=== PATIENT | male | born 1955 | race Caucasian/White ===

== ENCOUNTER 2016-09-05 02:45 | Inpatient (IN) | payer OTHER ==
[~2016-09-05] VITALS: Ht 167.6 cm; Wt 93.0 kg
[2016-09-05] MEDS ORDERED: IBUPROFEN400 M1 PO (08:01)
[2016-09-05] MEDS ORDERED: COLACE100 M1 PO (10:10)
[2016-09-05] MEDS ORDERED: PRILOSEC OTC20 M1 PO (10:10)
[2016-09-05] MEDS ORDERED: MIRALAX17 G1 PO (10:10)
[2016-09-05] MEDS ORDERED: DILAUDID2 M1 PO (10:10)
[2016-09-05] MEDS ORDERED: ASPIRIN EC325 M2 PO (10:10)
--- NOTE | 2016-09-05 10:25 | Patient Discharge Instructions ---
Discharge Instructions General Discharge Information You were seen/treated for: Right hip pain secondary to Right hip arthritis You had these procedures: Right total hip replacement Watch for these problems: Increasing pain, redness, warmth, swelling. Drainage of any type from incision. Inability to bear weight on right leg. Fever greater than 101.5. Do not soak the wound: Yes Daily wet to dry dressings: No No bath, but you may shower: Yes Other wound care: Keep wound clean and dry Special Instructions: Diet : Regular diet Activity; weight bear as tolerated Incision; keep incision clean dry and intact. You may shower however bathing or soaking. Do not apply any ointments to the postop incision site. DVT prophylaxis; use aspirin 325 mg by mouth twice a day for 3 weeks as directed. Continue the bowel regimen (Colace, MiraLAX] as directed to avoid constipation secondary to narcotics. Follow-up with Dr. Wilson in 6 weeks and notify physician prior to follow up visit if you develop redness, excessive drainage from incision site, inability to bear weight, or increase in pain in the postop site which is uncontrolled by pain medication, or fever greater than 101.5. Diet Continue normal diet: Yes Recommended Diet: Regular Activity Full Activity/No Limits: No Activity Self Limited: Yes Pounds, do NOT lift more than: 10 Activity Limited to: Weight bear as tolerated Acute Coronary Syndrome Inclusion Criteria At [place] or during hospital stay patient has or had the following: ACS DIAGNOSIS No Discharge Core Measures Meds if any: Prescribed or Continued at Discharge Meds if any: NOT Prescribed or Continued at Discharge Congestive Heart Failure Inclusion Criteria At [place] or during hospital stay patient has or had the following: CHF DIAGNOSIS No Discharge Core Measures Meds if any: Prescribed or Continued at Discharge Meds if any: NOT Prescribed or Continued at Discharge Cerebrovascular accident Inclusion Criteria At DC or during hospital stay patient has or had the following: CVA/TIA Diagnosis No Discharge Core Measures Meds if any: Prescribed or Continued at Discharge Meds if any: NOT Prescribed or Continued at Discharge Venous thromboembolism Inclusion Criteria VTE Diagnosis No VTE Type NONE VTE Confirmed by (Test) NONE Discharge Core Measures - Per Current guidelines, there needs to be overlap - treatment for the first 5 days of Warfarin therapy. - If discharged on Warfarin prior to 5 days of - overlap therapy, the patient will need to be - assessed for post discharge needs including - *Post discharge parental anticoagulation - *Warfarin and/or parental anticoagulation education - *Follow up date to check INR post discharge At least 5 days overlap therapy as Inpatient No Meds if any: Prescribed or Continued at Discharge Note: Overlap Therapy is Warfarin and Anticoagulant Meds if any: NOT Prescribed or Continued at Discharge
--- NOTE | 2016-09-05 10:33 | Surgical Discharge Summary ---
Visit Information Visit Dates Admission Date: 09/05/16 Discharge Date: 09/08/16 History of Present Illness Chief Complaint: Right hip pain secondary to osteoarthritis Surgical History Pertinent Surgical History: non-contributory Review of Systems: See H&P Hospital Course Course Attending Physician: JEAN MARIE VENTURA MD Primary Care Physician: UNKNOWN Hospital Course: Patient was admitted after undergoing the scheduled procedure right total hip replacement. He tolerated the procedure well and was transferred to a general surgical floor. His diet was advanced as tolerated. His pain is adequately controlled well with oral pain medication. He remained vitally stable, and vital signs were within normal limits. No acute complications postoperatively. Able to void spontaneously. During hospital course he was evaluated by physical therapist and was deemed appropriate for discharge to short term rehab. Allergies: Coded Allergies: No Known Allergies (09/02/16) Disposition Summary Disposition Principal Diagnosis: Right hip primary unilateral osteoarthritis Additional Diagnosis: none Discharge Disposition: home health services Discharge Instructions General Discharge Information Code Status: Full Code Patient's Diet: Regular, advance as tolerated Patient's Activity: weight bearing as tolerated. Limit any heavy lifting (less than 10lbs.) Follow-Up Instructions/Appts: Follow-up with Dr. VENTURA in 6 weeks for post OP FOLLW UP VISIT. Medications at Discharge Discharge Medications: Stop taking the following medications: Ibuprofen (Ibuprofen) 400 MG TABLET ORAL EVERY 6 HOURS NEEDED as needed for PAIN Start taking the following new medications: Morphine Sulfate (Ms Contin) 100 MG TABLET.ER 1 Tablet ORAL TWICE DAILY Qty = 30 No Refills Aspirin (Ecotrin*) 325 MG TABLET.DR 1 Tablet ORAL TWICE DAILY Qty = 60 No Refills Hydromorphone HCl (Dilaudid) 2 MG TABLET 1-2 Tablet ORAL EVERY 4-6 HOURS as needed for POST OP PAIN Qty = 36 No Refills Omeprazole Magnesium (Prilosec Otc) 20 MG TABLET.DR 1 Tablet ORAL DAILY Qty = 30 No Refills Docusate Sodium (Colace) 100 MG CAPSULE 1 Capsule ORAL TWICE DAILY Qty = 14 No Refills Instructions: DISCONTINUE IF YOU DEVELOP DIARRHEA Polyethylene Glycol 3350 (Miralax) 17 GRAM POWD.PACK 1 Packet ORAL DAILY Days = 7 No Refills Instructions: dissolve in water AND DISCONTIUE IFYOU DEVELOP DIARRHEA
--- NOTE | 2016-09-05 10:39 | Admission Core Measures ---
Admission Meds I reviewed the following Meds: Current Medications Sig/Loco Start time Last Medication Dose Stop Time Status Admin Acetaminophen 975 MG ONCE 09/05 NR (Tylenol) 09/05 2358 Cefazolin Sodium 2,000 MG ONCE 09/05 NR (Kefzol-Ancef Inj) 09/05 2358 Oxycodone HCl 10 MG ONCE 09/05 0000 NR (Roxicodone) 09/05 2358 Acute Coronary Syndrome Inclusion Criteria ACS Diagnosis No Inpatient Core Measures LDL Reminder: If No, please order W/I first 24hr of stay Congestive Heart Failure Inclusion Criteria CHF Diagnosis No Cerebrovascular accident Inclusion Criteria CVA/TIA Diagnosis No Inpatient Core Measures Bedside Swallow Eval Reminder: If BSE failed, place ST order Antithrombotic Reminder: Order Antithrombotic Medication by end of day 2 Antithrombotic Reminder: Document Reason Antithrombotic Not ordered by end of day 2 AFIB/Flutter Reminder: If Present, add to problem list AFIB/Flutter Reminder: Order Anticoag Medication for pts with AFIB/Flutter Atherosclerosis Reminder: If Present, add to problem list LDL Reminder: If No, please order W/I first 24hr of stay PT Order Reminder: If No, please order Venous thromboembolism Inpatient Core Measures VTE Risk Factors: Age > 40, Surgery No [facility] VTE prophylaxis d/t No contraindications No VTE Pharm Prophylaxis d/t No contraindications Inclusion Criteria - Per Current guidelines, there needs to be overlap - treatment for the first 5 days of Warfarin therapy. - Parenteral Anticoagulation (IV or SC) needs to be - given along with Warfarin therapy. VTE Diagnosis No VTE Type NONE VTE Confirmed by (Test) NONE Problem List As ranked by this Provider includes Assessment & Plan 1. Unilateral primary osteoarthritis, right hip HOME MEDS Home Med List Aspirin (Ecotrin*) 325 MG TABLET.DR 1 TAB PO BID ANTICOAGULATION Docusate Sodium (Colace) 100 MG CAPSULE 1 CAP PO BID CONSTIPATION Hydromorphone HCl (Dilaudid) 2 MG TABLET 1-2 TAB PO Q4-6 PRN POST OP PAIN Ibuprofen 400 MG TABLET 1 TAB PO EVERY 6HRS- NEEDED PRN PAIN (Reported) Omeprazole Magnesium (Prilosec Otc) 20 MG TABLET.DR 1 TAB PO DAILY GI PROTECTION Polyethylene Glycol 3350 (Miralax) 17 GRAM POWD.PACK 1 PAC PO DAILY CONSTIPATION
--- NOTE | 2016-09-05 13:06 | RADIOLOGY REPORT ---
EXAMINATION: XR HIP, RIGHT CLINICAL INFORMATION: Status post right total hip replacement. COMPARISON: None TECHNIQUE: Two views of the right hip. FINDINGS: The femoral and acetabular components of the right hip prosthesis appear well seated. No evidence of fracture or hardware failure. Typical postoperative soft tissue changes are noted. IMPRESSION: Status post right total hip replacement. No evidence of hardware failure or fracture.
--- NOTE | 2016-09-05 13:16 | PN- Orthopedic ---
Subjective Subjective: The patient was seen this afternoon postoperatively. He reports that he feels great and that his pain is under adequate control at the current time. He had no other complaints and is eager to work with physical therapy. Objective Vital Signs and I&Os Vital signs: Blood pressure 117/63, pulse 60, temperature 97.8, O2 saturation 98 % on room air I's and O's: 12 5 ML's in of lactated Ringer's/patient is due to void/EBL less than 150 Physical Exam: Gen.: Alert and in no obvious distress Skin: Warm and dry Cardiac: S1-S2 regular Pulmonary: Bilateral breath sounds are equal and slightly decreased at bases Extremities: Bilateral lower extremities are warm without calf tenderness or significant edema. Gross motor and sensory are intact. Right hip surgical dressing is clean, dry, and intact. Thigh compartments are soft without evidence of hematoma. Assessment/Plan Assessment/Plan Assessment: 61-year-old male status post right total hip arthroplasty. Postoperative the patient is progressing as expected and his pain is under adequate control. Plan: Out of bed with physical therapy patient is weightbearing as tolerated Continue current pain regiment Restart home medications GI and DVT prophylaxis, first dose of aspirin will be tonight Incentive spirometry Advance diet as tolerated Monitor for postoperative void begin Bowel regiment Core Measures/Miscellaneous Venous Thromboembolism VTE Risk Factors: Age > 40, Surgery VTE Contraindications: No Contraindications VTE Diagnosis: No VTE Type: NONE VTE Confirmed by (Test): NONE Beta Delores Is Beta Delores a Home Med? No Antibiotics Is Patient on Antibiotics? Yes If Yes: prophylaxis
[2016-09-05 13:50] VITALS: BP 112/70
--- NOTE | 2016-09-05 14:49 | Operative Report ---
Operative/Inv Procedure Report Surgery Date: 09/05/16 Name of Procedure: Right total hip replacement Pre-Operative Diagnosis: Primary right hip DJD Post-Operative Diagnosis: Same Estimated Blood Loss: 350 Surgeon/Accreditation Manager: LORENZO PULLIAM,JEAN MARIE Mclaughlin Anesthesia: block Operative/Procedure Note Note: Description of Procedure: The patient was taken to the operating room and positively identified. After induction of spinal anesthesia and administration of appropriate pre-operative antibiotics, the patient was positioned supine on the operating room table and all bony prominences were well padded. After performing a surgical timeout, the right lower extremity was prepped and draped in the usual sterile fashion. A direct anterior approach was made to the right hip. The incision was carried sharply through superficial soft tissues to the level of the fascia. Meticulous hemostasis was maintained with Bovie electocautery. The fascia over the tensor fascia jaime muscle was opened sharply and the interval between the TFL and the sartorius was entered bluntly taking care to stay lateral to the lateral femoral cutaneous nerve. Retractors were placed around the femoral neck and the pericapsular fat was identified. The ascending branches of the lateral femoral circumflex vessels were identified and carefully coagulated. The pericapsular fat and anterior capsule were then resected. A napkin ring osteotomy was performed and the femoral head was removed without difficulty. Attention was then turned to the acetabulum. After appropriate placement of retractors, the acetabulum was exposed. Soft tissue was cleaned from the acetabular margin and notch. Overhanging osteophytes were removed and the teardrop was exposed. The acetabulum was then sequentially reamed to accept a 68 mm Maria D Tritanium hemispherical shell. This was impacted into place in the appropriate position and fitted with a 36 mm Trident X3 zero degree polyethylene insert. Attention was then turned to the femur. After performing the appropriate ligament releases, the proximal femur was exposed. It was then sequentially broached to accept a size 6 [place] stem. This was trialed for leg length and stability. The trial component was removed and the final component was impacted into place. The trunnion was carefully cleaned and fit with a 36 mm, + 0 Biolox delta ceramic femoral head. The hip was reduced and put through a full range of motion and found to be stable. The articular space was then irrigated with sterile saline. The periarticular soft tissues were infilitrated with Marcaine. The fascial layer was closed with interrupted #1 vicryl suture and the skin was re-approximated with interrupted 2 -0 vicryl. The skin was closed with a running 3-0 V-Lock suture. Steri-strips and a sterile dressing were applied. The patient was awakened and taken to the recovery room in satisfactory condition.
[2016-09-05 22:51] VITALS: BP 118/72
[2016-09-06 03:58] VITALS: BP 138/64
[2016-09-06 07:30] VITALS: BP 132/68
--- NOTE | 2016-09-06 07:52 | PN- Orthopedic ---
See Addendum Subjective Subjective: NAEO. Without new complaints. Pain controlled. Denies numbness and tingling in right lower extremity. Tolerating diet without nausea vomiting. Acid flatus , no bowel movement. Bed with PT, weightbearing as tolerated. Denies chest pain or shortness of breath. Objective Vital Signs and I&Os Vital Signs Date Time Temp Pulse Resp B/P Pulse O2 O2 Flow FiO2 Ox Delivery Rate 09/06 0358 97.9 73 20 138/64 94 Room Air 09/05 2251 73 18 118/72 95 Room Air 09/05 1452 Room Air 09/05 1350 97.8 60 18 112/70 96 Room Air Intake & Output 09/06 0800 09/06 0000 09/05 1600 09/05 0800 09/05 0000 09/04 1600 Intake Total 600 480 Output Total 625 600 Balance -25 -120 Intake, IV 600 300 Intake, Oral 180 Number 1 Bowel Movements Output, Urine 625 600 Patient 205 lb Weight Physical Exam: General: NAD, comfortable, A&Ox3 Chest: CTAB, no wheezes, no rales. Heart S1S2 normal. Abdomen: soft, nontender, nondistended. +Bowel sounds x4 quadrants Ext: Right hip dressing clean dry and intact. Right lower extremity compartments soft. No calve swelling/TTP, neurovascularly intact bilateral lower extremities Current Medications: Current Medications Sig/Loco Start time Last Medication Dose Route Stop Time Status Admin Acetaminophen 650 MG Q4P PRN 09/05 1415 AC PO Acetaminophen 975 MG ONCE 09/05 0000 DC PO 09/05 2359 Aspirin 325 MG BID 09/05 1000 AC 09/06 PO 0722 Cefazolin Sodium 2 GM IQ8 09/05 1600 DC 09/06 N/A 1 UNIT IV 09/06 0029 0002 Cefazolin Sodium 2,000 MG ONCE 09/05 0000 DC IV 09/05 2359 Dextrose/Sodium 1,000 ML .[id number] 09/05 1415 AC 09/06 Chloride IV 0604 Docusate Sodium 100 MG BID 09/05 1000 AC PO Hydromorphone HCl 2 MG Q4P PRN 09/05 1415 AC PO Hydromorphone HCl 4 MG Q4P PRN 09/05 1415 AC 09/06 PO 0720 Ketorolac 30 MG .STK-MED ONE 09/05 1437 DC Tromethamine IM 09/05 1438 Ketorolac 15 MG Q8P PRN 09/05 1415 AC 09/05 Tromethamine IV 09/08 1405 1442 Lorazepam 0 Q1P PRN 09/05 1630 AC IV Melatonin 5 MG AT BEDTIME 09/05 2200 AC 09/05 PO 2130 Morphine Sulfate 2 MG Q2P PRN 09/05 1415 AC IV Omeprazole 40 MG DAILY AC 09/05 1001 AC 09/06 PO 0604 Ondansetron HCl 4 MG Q6P PRN 09/05 1415 AC IV Oxycodone HCl 10 MG .STK-MED ONE 09/05 0847 DC PO 09/05 0848 Oxycodone HCl 10 MG ONCE 09/05 0000 DC PO 09/05 2359 Patient Medication 1 ED .STK-MED ONE 09/05 1406 DC Teaching ED 09/05 1407 Polyethylene Glycol 17 GM DAILY 09/05 1000 AC PO Results Last 48 Hours of Labs: Laboratory Tests 09/06 0606 Chemistry Sodium Pending Potassium Pending Chloride Pending Carbon Dioxide Pending Anion Gap Pending BUN Pending Creatinine Pending BUN/Creatinine Ratio Pending Hematology CBC w Diff Pending WBC Pending RBC Pending Hgb Pending Hct Pending MCV Pending MCH Pending RDW Pending Plt Count Pending MPV Pending PUBS MCHC Pending Assessment/Plan Assessment/Plan 61yo M postop day 1 status post left total hip arthroplasty. AVSS, patient progressing well. - Pain control - OOB with PT, WBAT - PRN zofran - DC IVF - I/O's - f/u void - f/u a.m. labs - Aspirin 325 mg by mouth twice a day - Home in a.m. - Will d/w attending Core Measures/Miscellaneous Venous Thromboembolism VTE Risk Factors: Age > 40, Surgery VTE Contraindications: No Contraindications VTE Diagnosis: No VTE Type: NONE VTE Confirmed by (Test): NONE Beta Delores Is Beta Delores a Home Med? No Antibiotics Is Patient on Antibiotics? No
[2016-09-06 08:19] LABS: ABSOLUTE BASOPHIL COUNT 0 /CUMM (0.0-0.2); ABSOLUTE EOSINOPHIL COUNT 0 /CUMM (0.0-0.7); ABSOLUTE GRANULOCYTE CT 8.4 /CUMM (1.4-6.5); ABSOLUTE LYMPH COUNT 1.7 /CUMM (1.2-3.4); BASOPHIL % 0.2 % (0.0-2.0); EOSINOPHIL % 0.3 % (0-5); GRANULOCYTE % 75.7 % (42.2-75.2); HEMATOCRIT 35.2 % (42-52); MEAN CORPUSCULAR HGB 29.2 PG (27.0-31.0); MEAN CORPUSCULAR HGB CONC 33.9 G/DL (33.0-37.0); MEAN CORPUSCULAR VOLUME 86.1 FL (80.0-94.0); MEAN PLATELET VOLUME 7.3 FL (7.4-10.4); PLATELET COUNT 233 /CUMM (130-400); RBC DISTRIBUTION WIDTH 13.3 % (11.5-14.5); RED BLOOD CELL CT 4.09 /CUMM (4.70-6.10); WHITE BLOOD CELL COUNT 11.1 /CUMM (4.8-10.8)
[2016-09-06 10:27] VITALS: BP 128/62
[2016-09-06 14:27] VITALS: BP 140/60
[2016-09-06 16:00] VITALS: BP 140/60
[2016-09-06 22:00] VITALS: BP 112/59
[2016-09-07 06:00] VITALS: BP 110/60
[2016-09-07 06:18] VITALS: BP 110/60
--- NOTE | 2016-09-07 06:56 | PN- Orthopedic ---
Subjective Subjective: POD#2 S/P RIGHT EDGAR C/O INCREASED RIGHT HIP PAIN CONTROLLED WITH PO PAIN MEDS DENIES CP, SOB, NO N+V WITH DIET AMBULATING WITH PT Objective Vital Signs and I&Os Vital Signs Date Time Temp Pulse Resp B/P Pulse O2 O2 Flow FiO2 Ox Delivery Rate 09/07 0618 98.4 77 20 110/60 92 / 2200 98.6 88 20 112/59 Room Air 09/06 2200 98.6 88 20 112/59 09/06 1600 98.8 80 20 140/60 09/06 1427 98.8 80 20 140/60 96 Room Air 09/06 1027 97.9 72 18 128/62 97 Room Air Room Air 09/06 0730 97.8 74 18 132/68 98 Room Air Room Air Intake & Output 09/07 0800 09/07 0000 09/06 1600 09/06 0800 09/06 0000 09/05 1600 Intake Total 720 800 600 480 Output Total 562 746 7619 625 600 Balance -625 -155 -450 -25 -120 Intake, IV 600 300 Intake, Oral 720 800 180 Number 1 Bowel Movements Output, Urine 319 868 6193 625 600 Patient 205 lb Weight Physical Exam: CV: RRR LUNGS: CLEAR ABD: +BS, SOFT EXT: DRSG CHANGED, WOUND C/D/I NO CALF TENDERNESS BILAT DISTAL CMS INTACT NO PAIN WITH PASSIVE ROM RIGHT HIP Assessment/Plan Assessment/Plan ORTHO STABLE PLAN CONT OOB WITH PT/STAIRS PLAN FOR D/C WEHN CLEARED BY PT Core Measures/Miscellaneous Venous Thromboembolism VTE Risk Factors: Age > 40, Surgery VTE Contraindications: No Contraindications VTE Diagnosis: No VTE Type: NONE VTE Confirmed by (Test): NONE Beta Delores Is Beta Delores a Home Med? No Antibiotics Is Patient on Antibiotics? No
[2016-09-07 14:16] VITALS: BP 122/74
[2016-09-07 16:00] VITALS: BP 122/74
[2016-09-07 22:00] VITALS: BP 120/76
[2016-09-07 22:35] VITALS: BP 120/76
[2016-09-08 07:01] VITALS: BP 120/60
--- NOTE | 2016-09-08 08:14 | PN- Orthopedic ---
Subjective Subjective: NAEO. Patient without new c/o. Pain controlled. Tolerating diet without nausea vomiting. Passing flatus and having bowel movements. Voiding spontaneously. Out of bed and ambulating. Denies chest pain or shortness of breath. Objective Vital Signs and I&Os Vital Signs Date Time Temp Pulse Resp B/P Pulse O2 O2 Flow FiO2 Ox Delivery Rate 09/08 0701 98.0 76 20 120/60 93 Room Air 09/07 2235 97.9 78 20 120/76 94 Room Air 09/07 2200 97.9 78 20 120/76 09/07 1600 98.4 78 20 122/74 09/07 1416 98.4 78 20 122/74 96 Room Air Intake & Output 09/08 1600 09/08 0800 09/08 0000 09/07 1600 09/07 0800 09/07 0000 Intake Total 800 800 120 720 Output Total 077 960 2861 625 875 Balance -600 125 -350 -505 -155 Intake, Oral 800 800 120 720 Number 1 Bowel Movements Output, Urine 623 679 4538 625 875 Physical Exam: General: NAD, comfortable, A&Ox3 Chest: CTAB, no wheezes, no rales. Heart S1S2 normal. Abdomen: soft, nontender, nondistended. +Bowel sounds x4 quadrants Ext: Right hip incision intact without surrounding erythema, swelling, signs of infection. No calve swelling/TTP, neurovascularly intact bilateral lower extremities Current Medications: Current Medications Sig/Loco Start time Last Medication Dose Route Stop Time Status Admin Acetaminophen 650 MG Q4P PRN 09/05 1415 AC PO Aspirin 325 MG BID 09/05 1000 AC 09/07 PO 212 Docusate Sodium 100 MG BID 09/05 1000 AC 09/07 PO 2122 Hydromorphone HCl 2 MG Q4P PRN 09/05 1415 AC 09/08 PO 0337 Hydromorphone HCl 4 MG Q4P PRN 09/05 1415 AC 09/07 PO 1222 Ketorolac 15 MG Q8P PRN 09/05 1415 AC 09/05 Tromethamine IV 09/08 1405 1442 Lorazepam 0 Q1P PRN 09/05 1630 AC IV Melatonin 5 MG AT BEDTIME 09/05 2200 AC 09/07 PO 212 Morphine Sulfate 15 MG BID 09/07 1000 AC 09/07 PO 212 Omeprazole 40 MG DAILY AC 09/05 1001 AC 09/08 PO 0636 Ondansetron HCl 4 MG Q6P PRN 09/05 1415 IV Patient Medication 1 ED .STK-MED ONE 09/07 1354 DC Teaching ED 09/07 1355 Polyethylene Glycol 17 GM DAILY 09/05 1000 AC 09/07 PO 0910 Assessment/Plan Assessment/Plan 61yo M POD#3 s/p right total hip arthroplasty. AVSS, patient progressing well. - pain control - bowel regimen - OOB and ambulate with PT - WBAT - asa 325mg PO BID - DC home today - Will d/w attending Core Measures/Miscellaneous Venous Thromboembolism VTE Risk Factors: Age > 40, Surgery VTE Contraindications: No Contraindications VTE Diagnosis: No VTE Type: NONE VTE Confirmed by (Test): NONE Beta Delores Is Beta Delores a Home Med? No Antibiotics Is Patient on Antibiotics? No
[2016-09-08] MEDS ORDERED: MS CONTIN100 MG PO (10:19)
== END 2016-09-08 12:30 | disposition home health service (06) | DRG 470 ==
LOC: ENRESERVDT → ENRESERVTM → ENPENDDIS 02:45 → DELPENDDIS 02:45 → SDA 02:45 → EDBD 02:45 → SDA 07:00 → 2NB 13:48 → EDBD 09-08 12:30 → 2NB 09-08 12:30
PROVIDERS: Physician Assistant Surgical; ADMIT Orthopaedic Surgery
PROC: 0SR904A Replacement of Right Hip Joint with Ceramic on Polyethylene Synthetic Substitute, Uncemented, Open Approach (ICD-10-PCS; principal; 2016-09-05)
DX: M16.11 Unilateral primary osteoarthritis, right hip (principal)
CPT/HCPCS: 2NBSP; 36415; 73502-RT; 82436; 88304; 97110-GO; 97112-GO; 97116-GO; 97161-GP; 97530-GO; J0690; J0735; J1885; J2405; J7042

== ENCOUNTER 2016-11-28 02:40 | Inpatient (IN) | payer OTHER ==
[~2016-11-28] VITALS: Ht 167.6 cm; Wt 102.5 kg
[~2016-11-28 02:40] MED LIST: ASPIRIN EC325 M2 PO; COLACE100 M1 PO; DILAUDID2 M1 PO; IBUPROFEN400 M1 PO; MIRALAX17 G1 PO; MS CONTIN100 MG PO; PRILOSEC OTC20 M1 PO
[2016-11-28] MEDS ORDERED: ASPIRIN EC325 M2 PO (10:47)
[2016-11-28] MEDS ORDERED: COLACE100 M1 PO (10:47)
[2016-11-28] MEDS ORDERED: DILAUDID2 M1 PO (10:47)
[2016-11-28] MEDS ORDERED: MIRALAX17 G1 PO (10:48)
[2016-11-28] MEDS ORDERED: MS CONTIN15 M2 PO (10:48)
--- NOTE | 2016-11-28 10:53 | Patient Discharge Instructions ---
Discharge Instructions General Discharge Information You were seen/treated for: Left hip pain related to unilateral primary osteoarthritis You had these procedures: Left total hip replacement Watch for these problems: Increasing pain despite the use of pain medication. Increasing redness, warmth, swelling. Drainage of any type from incision. Inability to bear weight on operative leg. Persistent nausea and vomitting. Fever greater than 101.5 degrees Do not soak the wound: Yes No bath, but you may shower: Yes Other wound care: No ointment of any type on or near incision at any time. No exceptions. Keep wound clean and dry. Dressing will be changed on the second day post operatively. Daily dry dressing changes recommended thereafter. Special Instructions: Aspirin: Please take as directed in order to help prevent the development of a blood clot. Take with food to protect stomach. Constipation: Pain medication can be very constipating. Please take colace and miralax as directed to ensure that you are moving your bowels. You may discontinue this medication if you develop diarrhea. If you are unable to move your bowels for several days, or if you are unable to pass gas, please contact your doctor. Diet Continue normal diet: Yes Recommended Diet: Regular Activity Full Activity/No Limits: No Activity Self Limited: Yes Pounds, do NOT lift more than: 10 Activity Limited to: Weight bear as tolerated Acute Coronary Syndrome Inclusion Criteria At [place] or during hospital stay patient has or had the following: ACS DIAGNOSIS No Discharge Core Measures Meds if any: Prescribed or Continued at Discharge Meds if any: NOT Prescribed or Continued at Discharge Congestive Heart Failure Inclusion Criteria At [place] or during hospital stay patient has or had the following: CHF DIAGNOSIS No Discharge Core Measures Meds if any: Prescribed or Continued at Discharge Meds if any: NOT Prescribed or Continued at Discharge Cerebrovascular accident Inclusion Criteria At [place] or during hospital stay patient has or had the following: CVA/TIA Diagnosis No Discharge Core Measures Meds if any: Prescribed or Continued at Discharge Meds if any: NOT Prescribed or Continued at Discharge Venous thromboembolism Inclusion Criteria VTE Diagnosis No VTE Type NONE VTE Confirmed by (Test) NONE Discharge Core Measures - Per Current guidelines, there needs to be overlap - treatment for the first 5 days of Warfarin therapy. - If discharged on Warfarin prior to 5 days of - overlap therapy, the patient will need to be - assessed for post discharge needs including - *Post discharge parental anticoagulation - *Warfarin and/or parental anticoagulation education - *Follow up date to check INR post discharge At least 5 days overlap therapy as Inpatient No Meds if any: Prescribed or Continued at Discharge Note: Overlap Therapy is Warfarin and Anticoagulant Meds if any: NOT Prescribed or Continued at Discharge
--- NOTE | 2016-11-28 10:54 | Admission Core Measures ---
Admission Meds I reviewed the following Meds: Current Medications Sig/Loco Start time Last Medication Dose Stop Time Status Admin Acetaminophen 975 MG ONCE 11/28 0000 NR (Tylenol) 11/28 2358 Cefazolin Sodium 2,000 MG ONCE 11/28 NR (Kefzol-Ancef Inj) 11/28 2358 Oxycodone HCl 10 MG ONCE 11/28 0000 NR (Roxicodone) 11/28 2358 Acute Coronary Syndrome Inclusion Criteria ACS Diagnosis No Inpatient Core Measures LDL Reminder: If No, please order W/I first 24hr of stay Congestive Heart Failure Inclusion Criteria CHF Diagnosis No Cerebrovascular accident Inclusion Criteria CVA/TIA Diagnosis No Inpatient Core Measures Bedside Swallow Eval Reminder: If BSE failed, place ST order Antithrombotic Reminder: Order Antithrombotic Medication by end of day 2 Antithrombotic Reminder: Document Reason Antithrombotic Not ordered by end of day 2 AFIB/Flutter Reminder: If Present, add to problem list AFIB/Flutter Reminder: Order Anticoag Medication for pts with AFIB/Flutter Atherosclerosis Reminder: If Present, add to problem list LDL Reminder: If No, please order W/I first 24hr of stay PT Order Reminder: If No, please order Venous thromboembolism Inpatient Core Measures VTE Risk Factors: Age > 40, [facility] prophylaxis d/t No contraindications No VTE Pharm Prophylaxis d/t No contraindications Inclusion Criteria - Per Current guidelines, there needs to be overlap - treatment for the first 5 days of Warfarin therapy. - Parenteral Anticoagulation (IV or SC) needs to be - given along with Warfarin therapy. VTE Diagnosis No VTE Type NONE VTE Confirmed by (Test) NONE Problem List As ranked by this Provider includes Assessment & Plan 1. Unilateral primary osteoarthritis, left hip
--- NOTE | 2016-11-28 10:58 | Surgical Discharge Summary ---
Visit Information Visit Dates Admission Date: 11/28/16 Discharge Date: 11/30/16 History of Present Illness Chief Complaint: Left hip pain related to unilteral primary osteoarthritis Medical History Neurological: NONE EENT: NONE Cardiovascular: hyperlipidemia Respiratory: NONE Gastrointestinal: NONE Hepatic: NONE Renal: NONE Musculoskeletal: NONE Psychiatric: NONE Endocrine: NONE Blood Disorders: NONE Cancer(s): NONE ESL INSTRUCTIONAL ASSISTANT/Reproductive: NONE History of MRSA: No History of VRE: No History of CDIFF: No Isolation History: Standard Surgical History Pertinent Surgical History: non-contributory Psychosocial History Who Do You Live With? Patient/Self Review of Systems: SEE H&P Hospital Course Course Attending Physician: JEAN MARIE VENTURA MD Primary Care Physician: PATIENT HAS NO PRIMARY CARE DR Hospital Course: Patient was admitted to the hospital for an elective total joint replacement. Procedure was tolerated well and patient was transferred to a general surgical floor. Diet was advanced and tolerated and patient voided spontaneously. PT evaluated and treated. At time of discharge, vital signs were stable and within normal limits, neurovascular status was intact, and pain was controlled with oral pain medications. Allergies: Coded Allergies: No Known Allergies (09/02/16) Disposition Summary Disposition Principal Diagnosis: Left hip unilateral primary osteoarthritis Additional Diagnosis: none Discharge Disposition: SNF Discharge Instructions General Discharge Information Code Status: Full Code Patient's Diet: Regular, advance as tolerated Patient's Activity: wbat Follow-Up Instructions/Appts: Follow up with Dr. Ventura in 6 weeks from date of surgery, contact office to arrange/confirm this appointment Medications at Discharge Discharge Medications: Start taking the following new medications: Aspirin (Ecotrin*) 325 MG TABLET.DR 1 Tablet ORAL TWICE DAILY Qty = 60 No Refills Docusate Sodium (Colace) 100 MG CAPSULE 1 Capsule ORAL TWICE DAILY Qty = 14 No Refills Instructions: DISCONTINUE USE IF YOU DEVELOP LOOSE STOOL OR DIARRHEA Hydromorphone HCl (Dilaudid) 2 MG TABLET 1-2 Tablet ORAL EVERY 4-6 HOURS as needed for PAIN Qty = 36 No Refills Morphine Sulfate (Ms Contin) 15 MG TABLET.ER 1 Tablet ORAL TWICE DAILY Qty = 6 No Refills Polyethylene Glycol 3350 (Miralax) 17 GRAM POWD.PACK 1 Packet ORAL DAILY Qty = 7 No Refills Instructions: dissolve in water, DISCONTINUE USE IF YOU DEVELOP LOOSE STOOL OR DIARRHEA
--- NOTE | 2016-11-28 11:49 | RADIOLOGY REPORT ---
EXAMINATION: XR HIP, LEFT CLINICAL INFORMATION: Status post left total hip replacement. COMPARISON: None TECHNIQUE: Two views of the left hip. FINDINGS: Hardware from left total hip arthroplasty is demonstrated. The prosthetic femoral head is well situated over the acetabular component. No fracture or dislocation. Chronic appearing mineralization overlying the left anterior inferior iliac spine. Postsurgical soft tissue changes at the left hip. Lower lumbar degenerative changes. IMPRESSION: Status post left hip arthroplasty without radiographic evidence of acute complication.
--- NOTE | 2016-11-28 14:42 | Operative Report ---
Operative/Inv Procedure Report Surgery Date: 11/28/16 Name of Procedure: Left total hip replacement Pre-Operative Diagnosis: Primary left hip DJD Post-Operative Diagnosis: Same Estimated Blood Loss: 300 Surgeon/Director Of Instrumental Music: LORENZO PULLIAM,JEAN MARIE Mclaughlin Anesthesia: block Operative/Procedure Note Note: Description of Procedure: The patient was taken to the operating room and positively identified. After induction of spinal anesthesia and administration of appropriate pre-operative antibiotics, the patient was positioned supine on the operating room table and all bony prominences were well padded. After performing a surgical timeout, the left lower extremity was prepped and draped in the usual sterile fashion. A direct anterior approach was made to the left hip. The incision was carried sharply through superficial soft tissues to the level of the fascia. Meticulous hemostasis was maintained with Bovie electocautery. The fascia over the tensor fascia jaime muscle was opened sharply and the interval between the TFL and the sartorius was entered bluntly taking care to stay lateral to the lateral femoral cutaneous nerve. Retractors were placed around the femoral neck and the pericapsular fat was identified. The ascending branches of the lateral femoral circumflex vessels were identified and carefully coagulated. The pericapsular fat and anterior capsule were then resected. A napkin ring osteotomy was performed and the femoral head was removed without difficulty. Attention was then turned to the acetabulum. After appropriate placement of retractors, the acetabulum was exposed. Soft tissue was cleaned from the acetabular margin and notch. Overhanging osteophytes were removed and the teardrop was exposed. The acetabulum was then sequentially reamed to accept a 62 mm [place] Tritanium hemispherical solid back shell. This was impacted into place in the appropriate position and fitted with a 36 mm Trident X3 zero degree polyethylene insert. Attention was then turned to the femur. After performing the appropriate ligament releases, the proximal femur was exposed. It was then sequentially broached to accept a size 6 [place] Anato stem. This was trialed for leg length and stability. The trial component was removed and the final component was impacted into place. The trunnion was carefully cleaned and fit with a 36 mm, + 2.5 Biolox delta ceramic femoral head. The hip was reduced and put through a full range of motion and found to be stable. The articular space was then irrigated with sterile saline. The periarticular soft tissues were infilitrated with Marcaine. The fascial layer was closed with interrupted #1 vicryl suture and the skin was re-approximated with interrupted 2 -0 vicryl. The skin was closed with a running 3-0 V-Lock suture. Steri-strips and a sterile dressing were applied. The patient was awakened and taken to the recovery room in satisfactory condition.
--- NOTE | 2016-11-28 16:19 | PN- Orthopedic ---
Subjective Subjective: POC S/P LEFT EDGAR COMFORTABLE NO MAJOR COMPLAIANTS AT THIS TIME DENEIS CP, SOB, NO N+V WITH DIET Objective Vital Signs and I&Os Intake & Output 11/28 1600 11/28 0811/28 0000 11/27 1600 11/27 0800 11/27 0000 Intake Total Output Total Balance Patient 226 lb Weight Weight Reported by Patient Measurement Method Physical Exam: CV: RRR LUNGS: CLEAR ABD: SOFT, +BS EXT: DRSG DRY THIGH SOFT DISTAL CMS INTACT DTV Assessment/Plan Assessment/Plan ORTHO STABLE PLAN OOB WITH PT ASA FOR DVT PROPHYLAXIS TITRATE PAIN MEDS ADVANCE DIET Core Measures/Miscellaneous Venous Thromboembolism VTE Risk Factors: Age > 40, Surgery VTE Contraindications: No Contraindications VTE Diagnosis: No VTE Type: NONE VTE Confirmed by (Test): NONE Beta Delores Is Beta Delores a Home Med? No Antibiotics Is Patient on Antibiotics? Yes
[2016-11-28 16:34] VITALS: BP 108/60
[2016-11-28 18:47] VITALS: BP 108/60
[2016-11-28 22:12] VITALS: BP 104/60
[2016-11-29 00:30] VITALS: BP 100/58
[2016-11-29 06:51] VITALS: BP 100/56
--- NOTE | 2016-11-29 07:53 | PN- Orthopedic ---
Subjective Subjective: POD#1 S/P LEFT EDGAR NO MAJOR ISSUES OVERNIGHT DENIES CP, SOB, NO N+V WITH DIET Objective Vital Signs and I&Os Vital Signs Date Time Temp Pulse Resp B/P B/P Pulse O2 O2 Flow FiO2 Mean Ox Delivery Rate 06/06 0651 97.7 62 20 100/56 95 Room Air 06/06 0030 98.4 71 20 100/58 95 Room Air 06/05 2212 98.4 70 18 104/60 94 06/05 1847 98.0 74 18 108/60 95 06/05 1634 98.0 74 18 108/60 95 Intake & Output 06/06 0800 06/06 0000 06/05 1600 06/05 0800 06/05 0000 06/04 1600 Intake Total 460 750 Output Total 950 400 Balance -490 350 Intake, IV 100 150 Intake, Oral 360 600 Output, Urine 950 400 Patient 226 lb Weight Weight Reported by Patient Measurement Method Physical Exam: CV: RRR LUNGS: CLEAR ABD: SOFT, +BS EXT: DRSG DRY THIGH SOFT DISTAL CMS INTACT Assessment/Plan Assessment/Plan ORTHO STABLE PLAN OOB WITH PT ASA FOR DVT PROPHYLAXIS STR PLANNING Core Measures/Miscellaneous Venous Thromboembolism VTE Risk Factors: Age > 40, Surgery VTE Contraindications: No Contraindications VTE Diagnosis: No VTE Type: NONE VTE Confirmed by (Test): NONE Beta Delores Is Beta Delores a Home Med? No Antibiotics Is Patient on Antibiotics? Yes
[2016-11-29 08:00] VITALS: BP 110/60
[2016-11-29 08:43] LABS: ABSOLUTE BASOPHIL COUNT 0 /CUMM (0.0-0.2); ABSOLUTE EOSINOPHIL COUNT 0.1 /CUMM (0.0-0.7); ABSOLUTE GRANULOCYTE CT 10.9 /CUMM (1.4-6.5); ABSOLUTE LYMPH COUNT 1.6 /CUMM (1.2-3.4); ABSOLUTE MONOCYTE COUNT 1.2 /CUMM (0.10-0.60); BASOPHIL % 0.3 % (0.0-2.0); EOSINOPHIL % 0.5 % (0-5); GRANULOCYTE % 79.1 % (42.2-75.2); HEMATOCRIT 35.3 % (42-52); MEAN CORPUSCULAR HGB 29.1 PG (27.0-31.0); MEAN CORPUSCULAR HGB CONC 34.1 G/DL (33.0-37.0); MEAN CORPUSCULAR VOLUME 85.1 FL (80.0-94.0); MEAN PLATELET VOLUME 7.4 FL (7.4-10.4); PLATELET COUNT 261 /CUMM (130-400); RBC DISTRIBUTION WIDTH 13.9 % (11.5-14.5); RED BLOOD CELL CT 4.15 /CUMM (4.70-6.10); WHITE BLOOD CELL COUNT 13.7 /CUMM (4.8-10.8)
[2016-11-29 11:37] VITALS: BP 112/60
[2016-11-29 14:11] VITALS: BP 130/80
[2016-11-29 22:25] VITALS: BP 118/70
[2016-11-30 06:03] VITALS: BP 142/78
--- NOTE | 2016-11-30 07:47 | PN- Orthopedic ---
Subjective Subjective: Hip pain is controlled. He is voiding well. He complaints of mild abdominal discomfort and flatulence, feels as though he is constipated, this occurred last time he had his left total hip arthroplasty as well. He denies any fever or flulike illness Objective Vital Signs and I&Os Vital Signs Date Time Temp Pulse Resp B/P B/P Pulse O2 O2 Flow FiO2 Mean Ox Delivery Rate 11/30 0603 98.6 71 20 142/78 97 Room Air 11/29 2225 98.2 64 20 118/70 96 11/29 1411 97.6 63 20 130/80 94 Room Air 11/29 1137 97.6 69 20 112/60 95 Room Air 11/29 1123 Room Air Room Air 11/29 0800 110/60 Intake & Output 11/30 0800 11/30 0000 11/29 1600 11/29 0800 11/29 0000 / 1600 Intake Total 500 100 670 460 750 Output Total 700 200 950 400 Balance 500 -600 470 -490 350 Intake, IV 200 100 110 100 150 Intake, Oral 300 560 360 600 Output, Urine 700 200 950 400 Patient 226 lb Weight Weight Reported by Patient Measurement Method Physical Exam: Well-developed well-nourished no apparent distress. HEENT: Atraumatic, extraocular motion intact Neck: Supple, no lymphadenopathy Respiratory: No respiratory distress Extremities: No edema RIGHT lower extremity hip dressing in place, Dressing clean dry and intact with minimal bloody staining. Dressing changed, dry sterile dressing applied. Incision without erythema Mild thigh edema No signs of infection. No shortening or rotation Hip range of motion is limited and without unexpected pain Neurovascularly intact distally Bilateral calves are supple, nontender. Neuro: Alert and oriented x3 Psych: Mood affect normal, normal memory normal judgment. Skin: Warm and dry, no rash on exposed skin Results Last 48 Hours of Labs: Laboratory Tests 11/29 0630 Chemistry Sodium (137 - 145 mmol/L) 136 L Potassium (3.5 - 5.1 mmol/L) 4.3 Chloride (98 - 107 mmol/L) 99 Carbon Dioxide (22 - 30 mmol/L) 27 Anion Gap (5 - 16) 9 BUN (9 - 20 mg/dL) 13 Creatinine (0.7 - 1.2 mg/dL) 0.7 Estimated GFR (>60 ml/min) > 60 BUN/Creatinine Ratio (7 - 25 %) 18.6 Hematology CBC w Diff NO MAN DIFF REQ WBC (4.8 - 10.8 /CUMM) 13.7 H RBC (4.70 - 6.10 /CUMM) 4.15 L Hgb (14.0 - 18.0 G/DL) 12.1 L Hct (42 - 52 %) 35.3 L MCV (80.0 - 94.0 FL) 85.1 MCH (27.0 - 31.0 PG) 29.1 RDW (11.5 - 14.5 %) 13.9 Plt Count (130 - 400 /CUMM) 261 MPV (7.4 - 10.4 FL) 7.4 Gran % (42.2 - 75.2 %) 79.1 H Lymphocytes % (20.5 - 51.1 %) 11.6 L Monocytes % (1.7 - 9.3 %) 8.5 Eosinophils % (0 - 5 %) 0.5 Basophils % (0.0 - 2.0 %) 0.3 Absolute Granulocytes (1.4 - 6.5 /CUMM) 10.9 H Absolute Lymphocytes (1.2 - 3.4 /CUMM) 1.6 Absolute Monocytes (0.10 - 0.60 /CUMM) 1.2 H Absolute Eosinophils (0.0 - 0.7 /CUMM) 0.1 Absolute Basophils (0.0 - 0.2 /CUMM) 0 PUBS MCHC (33.0 - 37.0 G/DL) 34.1 Assessment/Plan Assessment/Plan Postop day #2 status post right total hip arthroplasty anterior approach Continue pain medication Perioperative antibiotics completed Aspirin for DVT prophylaxis, ALPS Add Senokot for constipation and Dulcolax suppository as needed Out of bed with physical therapy Plan for discharge to short-term rehabilitation tomorrow Dressing changed daily Core Measures/Miscellaneous Venous Thromboembolism VTE Risk Factors: Age > 40, Surgery VTE Contraindications: No Contraindications VTE Diagnosis: No VTE Type: NONE VTE Confirmed by (Test): NONE Beta Delores Is Beta Delores a Home Med? No Antibiotics Is Patient on Antibiotics? Yes
[2016-11-30 13:43] VITALS: BP 142/78
== END 2016-11-30 15:30 | DRG 301 ==
LOC: 2NA 02:40 → SDA 02:40 → EDBD 02:40 → SDA 07:00 → ENRESERV 11:44 → ENTRNSPT 12:36 → EDTRNSPT 12:50 → EDTRNSPTSTS 12:50 → EDTRNSPTTYP 12:50 → CMPTRNSPT 12:59 → 2NA 13:12 → ENPENDDIS 11-30 10:01 → 2NA 11-30 15:30
PROVIDERS: Nurse Practitioner; ADMIT Orthopaedic Surgery
PROC: 0SRB04A Replacement of Left Hip Joint with Ceramic on Polyethylene Synthetic Substitute, Uncemented, Open Approach (ICD-10-PCS; principal; 2016-11-28)
DX: M16.12 Unilateral primary osteoarthritis, left hip (principal); G47.00 Insomnia, unspecified
CPT/HCPCS: 2NASP; 36415; 73502-LT; 82436; 88304; 97116-GO; 97161-GP; 97530-GO; J0131; J0690; J0735; J1885; J2550; J7042